=== PATIENT | male | born 1995 | race Caucasian/White ===

== ENCOUNTER → 2023-11-02 | Outpatient (CLI) | payer OTHER, SELFPAY ==
--- OUTSIDE RECORDS SUMMARY | 2023-11-02 20:04 | XMS RPT_ITS | CCD ---
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 Name Role Phone UNKNOWN, PROVIDER Unavailable Unavailable Carey Oropeza PA-C Unavailable Unavailable FLOR CEJA Unavailable SELF, SELF Referring Unavailable IGNACIO ESTRADA Referring Unavailable JOSIANE MCCARTHY Attending Unavailable IGNACIO ESTRADA Referring Unavailable NESTOR MORSE Attending Unavailable Problems Active Problems Problem Classification Problem Date Documented Da te Episodic/Chronic Unclassified (1 source) Unknown / UNK(Unknown) Onset: 11-22-2017 Unclassified (2 sources) FAP (familial adenomatous polyposis); Translations: [FAP (familial adenomatous polyposis)] Onset: 10-13-2023 Past or Other Problems Problem Classification Problem Date Documented Da te Episodic/Chronic Unclassified (1 source) RIGHT EAR PAIN Onset: 11-22-2017 Results Test Name Value Interpretation Reference Range Facil ity Encounters Encounter Date Encounter Type Care Provider Facility Start: 10-14-2023 ambulatory IGNACIO ESTRADA Facility :[id number] Start: 10-13-2023 End: 10-13-2023 ambulatory JOSIANE MCCARTHY Facility:[facility] Start: 10-08-2023 End: 10-08-2023 ambulatory NESTOR MORSE Facility:[facility] Start: 08-17-2023 ambulatory FLOR CEJA Facility: [facility] Start: 02-11-2018 Ambulatory Carey Oropeza Faci lity:[facility] Start: 11-22-2017 Ambulatory PROVIDER UNKNOWN Facili ty:[facility] Payers Date Payer Category Payer Unknown [id number] 2016 Unknown [id number] 1966 Unknown [id number] Unknown [id number] Progress note 10-08-2023 Note Date & Type Note Facility 10-08-2023 Note HNO ID: [id number] Author: DEION CALI MD Service: ? Author Type: Physician Type: Progress Notes Filed: 10/09/2023 12:24 Note Text: Staff note: Patient's case discussed with Fellow physician. I personally confirmed clark elements of history with the patient. This is a virtual visit. It required patient-provider interaction for the medical decision making as documented. I have communicated my name and active licensure. The patient's identity and physical location were verified at the time of this visit. Either the patient or their legal sales and merchandising representative has been informed of the risks and benefits of -- and alternatives to -- treatment through a remote evaluation and consents to proceed with the evaluation remotely. Persons present: patient. Time spent with patient: 10 minutes. My findings summarized as follows: HISTORY As outlined in Fellow's note. PHYSICAL As outlined in Fellow's note. ASSESSMENT/PLAN Agree with Fellow's note. Deion Cali MD October 08, 2023 [facility] Progress note 10-08-2023 Note Date & Type Note Facility 10-08-2023 Note HNO ID: [id number] Author: NESTOR MORSE MD Service: ? Author Type: Fellow Type: Progress Notes Filed: 10/09/2023 12:24 Note Text: DEPARTMENT OF GASTROENTEROLOGY - NEW PATIENT/CONSULT This visit was conducted as a virtual visit. REASON FOR VISIT Johnny Nicole is a 28 year old male who is scheduled at the request of Self for FAP. My final recommendations will be communicated back to the requesting physician by the way of the shared medical record, fax, or via US Mail HISTORY OF PRESENT ILLNESS Johnny Nicole is a 28 year old male who presents today for an evaluation of FAP. His father was diagnosed with polyposis last year and had a positive genetic test this fall which led to Johnny having genetic testing. Father is seen at [facility]. He has never had a colonoscopy or EGD and reports no rectal bleeding, weight loss or abdominal pain. He reports one bowel movement every three days. He can have harder stools at times. Denies rectal pain or abdominal pain. No significant straining. He has tried miralax gummies intermittently in the past. He has not tried fiber supplements in the past. He has had acid reflux chronically. He was on omeprazole 20 daily in the past and then tapered himself off. He can have acid reflux 1-2 times per week now that is controlled with tums. Colonoscopy and EGD are scheduled for 10/13/23. These are his first scopes. Thyroid US is rescheduled for October. Family history is significant for FAP and polyposis in his father, paternal grandfather in his early 50's from and [place], paternal grandmother has Heart failure and age related issues. Great aunt had a cervical cancer. Two paternal aunts and one brother are undergoing testing. No children - first baby is due February 14, 2024. 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*) Answers submitted by the patient for this visit: Review of Systems Gastroenterology (Submitted on 10/07/2023) Fever: No Chills: No Night Sweats: No Unitentional Weight Change: No A Cough: No Difficulty Breathing: No Chest Pain: No Belly pain: No A feeling of fullness or have belly pain after eating: No Food getting stuck in your throat or chest after eating: No Nausea - that is, a feeling like you could vomit: No Regurgitation - that is, food or liquid coming back up into your throat or mouth without vomiting, or feel burning behind your breast bone: No Loss of appetite: No To throw up or vomit: No Blood in your stools: No Black tarry stools: No Loose or watery stools: No The feeling like you need to empty your bowels right away - that is, feel as if you would have an accident: No Bowel incontinence - that is, have an accident because you cannot make it to the bathroom in time: No Problems with straining while having bowel movements , hard or lumpy stools, or feel unfinished (that you have not passed all your stool): No Pain in rectum or anus during bowel movements: No Problems with jaundice - that is, yellow discoloration of your skin or eyes, now or in the past: No Problems with having to flush the toilet more than two times due to oily stool, or see stool floating with oil: No PAST MEDICAL HISTORY History reviewed. No pertinent past medical history. PAST SURGICAL HISTORY History reviewed. No pertinent surgical history. SOCIAL HISTORY No current outpatient medications on file. No current facility-administered medications for this visit. ALLERGIES Not on File PHYSICAL EXAMINATION There were no vitals taken for this visit. Physical Exam is limited as this visit was conducted as a video visit. General Appearance: well appearing, alert, in no acute distress Eyes: conjunctiva and sclera normal Neuro:alert, oriented x 3, pleasant and in no acute distress ASSESSMENT Johnny Nicole is a 28 year old male who presents today for an evaluation of FAP. His father was diagnosed with polyposis last year and had a positive genetic test this fall which led to Johnny having genetic testing. He has never had a colonoscopy or EGD. He is largely asymptomatic from a GI perspective. He does have mild constipation and acid reflux that is controlled with tums. PLAN: - EGD and colonoscopy next week as planned - thyroid US in October - discussed increasing dietary fiber and/or fiber supplementation for constipation - recommend kiwi-fruit (2) daily, or prune juice or prunes to help with bowel movements Plan is to follow up as needed (prn). This patient case was discussed with Dr. Cali. Nestor Morse MD GI/Hepatology Fellow [facility] Summary Purpose Family History No Family History Records FoundNo Family History Records FoundNo Family History Records FoundNo Family History Records FoundNo Family History Records Found Advance Directives No Advanced Directives Records FoundNo Advanced Directives Records FoundNo Advanced Directives Records FoundNo Advanced Directives Records FoundNo Advanced Directives Records Found Additional Source Comments (unrecognized sect ion and content) No Status Records FoundNo Status Records FoundNo Status Records FoundNo Status Records FoundNo Status Records Found INFORMATION SOURCE (unrecogn ized section and content) DATE CREATED AUTHOR AUTHOR'S ORGANIZ ATION 10/30/2022 [facility] ([place]) DATE CREATED AUTHOR AUTHOR'S ORGANIZ ATION 08/18/2023 [facility] DATE CREATED AUTHOR AUTHOR'S ORGANIZ ATION 10/15/2023 [facility] DATE CREATED AUTHOR AUTHOR'S ORGANIZ ATION 10/16/2023 [facility] FOR RECORDS PERTAINING TO PATIENTS WHO ARE OR HAVE BEEN ENROLLED IN A CHEMICAL DEPENDENCY/SUBSTANCEABUSE PROGRAM, SOME INFORMATION MAY BE OMITTED. This clinical summary was aggregated from multiple sources. Caution should be exercised in using it in the provision of clinical care. This summary normalizes information from multiple sources, and as a consequence, information in this document may materially change the coding, format and clinical context of patient data. In addition, data may be omitted in some cases. CLINICAL DECISIONS SHOULD BE BASED ON THE PRIMARY CLINICAL RECORDS. [employer] provides no warranty or guarantee of the accuracy or completeness of information in this document.
== END | disposition home or self-care (01) ==
LOC: LABSPEC 16:54
PROVIDERS: Referring Provider Obstetrics & Gynecology; Visit Provider Obstetrics & Gynecology
DX: Z31.440 Encounter of male for testing for genetic disease carrier status for procreative management (principal)
CPT/HCPCS: 36415

== ENCOUNTER → 2023-11-25 | Outpatient (CLI) | payer OTHER, SELFPAY ==
--- OUTSIDE RECORDS SUMMARY | 2023-11-25 22:44 | XMS RPT_ITS | CCD ---
Author Name Unknown Address [address] [facility] [address] [place] [address] Organization [facility] Care Team Providers Care Salmon Gillnet Vessel Operator Name Role Phone UNKNOWN, PROVIDER Unavailable Unavailable Carey Oropeza PA-C Unavailable Unavailable FLOR CEJA Attending Unavailable SELF, SELF Referring Unavailable SOPHIE ESTRADA Referring Unavailable Unavailable Primary Care Provider Unavailabl e SELF Referring Unavailable SOPHIE ESTRADA Attending Unavailable JOSIANE MCCARTHY Attending Unavailable SOPHIE ESTRADA Referring Unavailable NESTOR MORSE Attending Unavailable Problems Active Problems Problem Classification Problem Date Documented Da te Episodic/Chronic Esophageal disorders (1 source) Gastro-esophageal reflux disease with esophagitis; Translations: [Gastroesophageal reflux disease with esophagitis without hemorrhage] 11-08-2023 Chronic Other and unspecified benign neoplasm (2 sources) Familial multiple polyposis syndrome; Translations: [FAP (familial adenomatous polyposis)] Onset: 10-13-2023 11-08-2023 Episodic Unclassified (1 source) Unknown / UNK(Unknown) Onset: 11-22-2017 Unclassified (2 sources) FAP (familial adenomatous polyposis); Translations: [FAP (familial adenomatous polyposis)] Onset: 10-13-2023 Past or Other Problems Problem Classification Problem Date Documented Da te Episodic/Chronic Unclassified (1 source) RIGHT EAR PAIN Onset: 11-22-2017 Results Test Name Value Interpretation Reference Range Facil ity Encounters Encounter Date Encounter Type Care Provider Facility Start: 11-08-2023 End: 11-08-2023 ambulatory Sophie Estrada MD Work Phone: Gastroenterolgy Plan of Treatment Date Care Activity Detail Author Start: 09-27-2023 Depression Assessment Depression Ass essment [facility] Start: 05-28-2023 Covid-19 Vaccine () Covid-19 Vaccine () [facility] Start: 05-28-2023 Influenza vaccination Influenza Vacc ine (#1) [facility] Start: 06-02-2017 Urine microalbumin profile DTa P,Tdap,Td Vaccine (7 - Td or Tdap) [facility] Start: 2014 Hepatitis C screening Hepatitis C Sc yamile [facility] Start: 2014 HIV screening HIV Screening [facility] Immunizations Immunization Date Immunization Notes Care Provider Fa cility 07-26-2021 influenza virus vacc ine, unspecified formulation Sophie Estrada MD Work Phone: [facility] Payers Date Payer Category Payer Unknown [id number] 2023 Unknown [employer]MO [employer] PPO [id number] 2023-Present [phone] [address] [place] [address] PPO [id number] 2016 Unknown [id number] 1966 Unknown [id number] Unknown [id number] Social History Date Type Detail Facility Start: 10-13-2023 Tobacco smoking stat us NHIS Never smoked tobacco [facility] Start: 10-13-2023 Alcohol intake Current drinke r of alcohol (finding) [facility] Start: 10-13-2023 End: 11-08-2023 History of Social function [facility] Start: 10-13-2023 End: 11-08-2023 Tobacco use panel [facility] National Score (1-10 0), lower number is lower risk 63 [facility] Start: 10-13-2023 [facility] Start: 1995 Sex Assigned At Not on file [facility] Progress note 11-08-2023 Note Date & Type Note Facility 11-08-2023 Note HNO ID: [id number] Author: SOPHIE ESTRADA MD Service: ? Author Type: Physician Type: Progress Notes Filed: 11/10/2023 09:26 Note Text: VIRTUAL VISIT FOLLOW UP I have communicated my name and active licensure. The patient's identity and physical location were verified at the time of this visit. Either the patient or their legal automotive leasing sales representative has been informed of the risks and benefits of -- and alternatives to -- treatment through a remote evaluation and consents to proceed with the evaluation remotely. I had a virtual visit with Mr. Nicole today for follow up of recent diangosis of FAP. UPDATED HISTORY: Father was diagnosed with polyposis last year and had a positive genetic test this fall which led to Johnny having genetic testing. 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 Doing well, no symptoms. is expecting. Meeting with genetic counselor. Infrequent heartburn FAP surveillance: EGD 10/13/2023- first exam for FAP surveillance - 2 cm hiatal hernia. - LA Grade A reflux esophagitis with no bleeding. - 20-30, gastric polyps. Resected and retrieved. - Normal ampulla and duodenal bulb. - Two duodenal 1-2 mm polyps. Resected and retrieved Path: A. Duodenum, polypectomy x 2: - Fragments of tubular adenoma, negative for high-grade dysplasia. B. Stomach, polypectomy: - Polypoid fragments of gastric mucosa with foveolar hyperplasia, negative for dysplasia. Cscope 10/13/2023 for FAP surveillance - Total 38 polyps, 1-2 mm in size, 2 polyps resected. Normal TI Path: C. Colon, random, polypectomy x 2: - Fragments of tubular adenoma. Thyroid US 10/14/2023: Normal Social History Tobacco Use Smoking status: Never Vaping Use Vaping Use: Never used Substance Use Topics Alcohol use: Yes Comment: rarely Drug use: Never No current outpatient medications on file. No current facility-administered medications for this visit. ALLERGIES No Known Allergies REVIEW OF SYSTEMS: PAIN ASSESSMENT: Negative for pain, history of chronic pain, or current treatment for a chronic pain condition. GENERAL: No weight loss, malaise or fevers RESPIRATORY: Negative for cough, hemoptysis, wheezing, COPD, dyspnea or shortness of breath CARDIOVASCULAR: Negative for chest pain, leg swelling, hypertension, CHF or palpitations GI: see HPI : No history of dysuria, frequency or incontinence IMPRESSION 1. FAP, attenuated phenotype c/b gastric polyps and stage I duodenal polyposis 2. Normal thyroid US 2023 3. Erosive GERD in the setting of a small hiatal hernia 4. BMI 30 RECOMMENDATION: 1. Non pharmacologic measuresf for GERD. Discussec correlation between central weight/abdominal fat and GERD 2. Famotidine as needed for heartburn. Recommend PPI daily if symptoms worsen. 3. Repeat cscope in 1 year, EGD in 2 years 4. Thyroid US due in 2025 I spent a total of 30 minutes on the date of the service which included preparing to see the patient, [id number] patient care, and completing clinical documentation. Sophie Estrada MD [facility] History of Present illness Narrative 11-08-2023 Sophie Estrada MD - 11/08/2023 11:00 AM EST Note Date & Type Note Facility 11-08-2023 History of Presen t illness Narrative VIRTUAL VISIT FOLLOW UP I have communicated my name and active licensure. The patient's identity and physical location were verified at the time of this visit. Either the patient or their legal automotive leasing sales representative has been informed of the risks and benefits of -- and alternatives to -- treatment through a remote evaluation and consents to proceed with the evaluation remotely. I had a virtual visit with Mr. Nicole today for follow up of recent diangosis of FAP. UPDATED HISTORY: Father was diagnosed with polyposis last year and had a positive genetic test this fall which led to Johnny having genetic testing. Father is seen at [facility]. 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 Doing well, no symptoms. is expecting. Meeting with genetic counselor. Infrequent heartburn FAP surveillance: EGD 10/13/2023- first exam for FAP surveillance - 2 cm hiatal hernia. - LA Grade A reflux esophagitis with no bleeding. - 20-30, gastric polyps. Resected and retrieved. - Normal ampulla and duodenal bulb. - Two duodenal 1-2 mm polyps. Resected and retrieved Path: A. Duodenum, polypectomy x 2: - Fragments of tubular adenoma, negative for high-grade dysplasia. B. Stomach, polypectomy: - Polypoid fragments of gastric mucosa with foveolar hyperplasia, negative for dysplasia. Cscope 10/13/2023 for FAP surveillance - Total 38 polyps, 1-2 mm in size, 2 polyps resected. Normal TI Path: C. Colon, random, polypectomy x 2: - Fragments of tubular adenoma. Thyroid US 10/14/2023: Normal Social History Tobacco Use Smoking status: Never Vaping Use Vaping Use: Never used Substance Use Topics Alcohol use: Yes Comment: rarely Drug use: Never No current outpatient medications on file. No current facility-administered medications for this visit. ALLERGIES No Known Allergies REVIEW OF SYSTEMS: PAIN ASSESSMENT: Negative for pain, history of chronic pain, or current treatment for a chronic pain condition. GENERAL: No weight loss, malaise or fevers RESPIRATORY: Negative for cough, hemoptysis, wheezing, COPD, dyspnea or shortness of breath CARDIOVASCULAR: Negative for chest pain, leg swelling, hypertension, CHF or palpitations GI: see HPI : No history of dysuria, frequency or incontinence IMPRESSION 1. FAP, attenuated phenotype c/b gastric polyps and stage I duodenal polyposis 2. Normal thyroid US 2023 3. Erosive GERD in the setting of a small hiatal hernia 4. BMI 30 RECOMMENDATION: 1. Non pharmacologic measuresf for GERD. Discussec correlation between central weight/abdominal fat and GERD 2. Famotidine as needed for heartburn. Recommend PPI daily if symptoms worsen. 3. Repeat cscope in 1 year, EGD in 2 years 4. Thyroid US due in 2025 I spent a total of 30 minutes on the date of the service which included preparing to see the patient, [id number] patient care, and completing clinical documentation. Sophie Estrada MD documented in this encounter [facility] Progress note 10-08-2023 Note Date & Type Note Facility 10-08-2023 Note HNO ID: [id number] Author: DEION CALI MD Service: ? Author [...] visit. Either the patient or their legal automotive leasing sales representative has been informed of the risks [...] note. Deion Cali MD October 08, 2023 [facility] Progress note 10-08-2023 Note Date & Type Note Facility 10-08-2023 Note HNO ID: [id number] Author: NESTOR MORSE MD Service: ? Author [...] having genetic testing. Father is seen at [facility]. He has never had a colonoscopy [...] grandfather in his early 50's from and [place], paternal grandmother has Heart failure and age related issues. Great aunt had a cervical cancer. Two paternal aunts and one brother are undergoing testing. No children - first baby is due February 14, 2024. 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 08/18/23 [facility] Single Site Testing for APC - pathogenic [...] Dr. Cali. Nestor Morse MD GI/Hepatology Fellow [facility] Evaluation note Note Date & Type Note Facility documented in this encounter [facility] Summary Purpose Family History No Family History [...] DATE CREATED AUTHOR AUTHOR'S ORGANIZ ATION 10/30/2022 [facility] ([place]) DATE CREATED AUTHOR AUTHOR'S ORGANIZ ATION 08/18/[address] [facility] DATE CREATED AUTHOR AUTHOR'S ORGANIZ ATION 10/15/2023 [facility] DATE CREATED AUTHOR AUTHOR'S ORGANIZ ATION 11/11/2023 [facility] Source Comments (unrecognize d section and content) In the event this informatio n is protected by the Federal Confidentiality of Alcohol and Drug Abuse Patient Records regulations: The Federal rules restrict any use of the information to criminally investigate or prosecute any alcohol or drug abuse patient.[facility] Reason for Visit (unrecogniz ed section and content) FOR RECORDS PERTAINING TO PATIENTS WHO ARE [...] BE BASED ON THE PRIMARY CLINICAL RECORDS. [facility] [employer] [facility]. provides no warranty or guarantee of the accuracy or completeness of information in this document.
== END | disposition home or self-care (01) ==
LOC: LAB 16:25
PROVIDERS: Referring Provider Obstetrics & Gynecology; Visit Provider Obstetrics & Gynecology
DX: Z31.440 Encounter of male for testing for genetic disease carrier status for procreative management (principal)
CPT/HCPCS: 36415; 86850; 86900; 86901